=== PATIENT | male | born 1945 | race Two or more races ===

== ENCOUNTER 2022-01-13 06:10 | Day surgery (SDC) | payer OTHER ==
[~2022-01-13] VITALS: Ht 180.3 cm; Wt 142.9 kg
[~2022-01-13 06:10] MED LIST: CYCL-838 PO; FURO1TAB31 PO; HYDR-4798 PO; MELO-61 PO; OMEGCAP2 OR; SACU1TAB7 PO; TAM04C PO; WARF5TAB71 PO
[2022-01-13] MEDS ORDERED: ESMOLOL HCL (10MG/ML) 10 ML VIAL IV ONE (06:11)
[2022-01-13] MEDS ORDERED: LIDOCAINE W/ EPINEPHRINE 1% 20ML VIAL ONE (07:12)
[2022-01-13] MEDS ORDERED: NEOMYCIN-BACITRACIN-POLYM 15GM TOP OINT TOP ONE (07:12)
[2022-01-13] MEDS ORDERED: ceFAZolin 1GM/50ML 150 ML IV ONE (07:23)
[2022-01-13] MEDS ORDERED: MIDAZOLAM HCL 2MG/2ML 2ml VIAL (1mg/ml) ONE (07:46)
[2022-01-13] MEDS ORDERED: MEPERIDINE HCL (25 MG/ML) 1ML VIAL ONE (07:46)
[2022-01-13] MEDS ORDERED: fentaNYL CITRATE 100 MCG/2 ML VL ONE (07:46)
[2022-01-13] MEDS ORDERED: PROPOFOL 10 MG/ML 20 ML IV ONE (08:43)
[2022-01-13] MEDS ORDERED: DexAMETHasone SOD PHOS 10MG/1ML VIAL INJ ONE (08:43)
[2022-01-13] MEDS ORDERED: LABETALOL HCL 5 MG/ML 4ML SYRINGE IV PRN (09:15)
[2022-01-13] MEDS ORDERED: ePHEDrine SULFATE 50 MG/ML AMP IV PRN (09:15)
[2022-01-13] MEDS ORDERED: MORPHINE SULFATE 4 MG/ML SYR/VIAL IV PRN (09:15)
[2022-01-13] MEDS ORDERED: ONDANSETRON HCL 4 MG/2 ML VIAL IV PRN (09:15)
[2022-01-13] MEDS ORDERED: MIDAZOLAM HCL 2MG/2ML 2ml VIAL (1mg/ml) IV PRN (09:15)
[2022-01-13] MEDS ORDERED: HYDROmorphone HCL 2 MG/ML VL/or syr IV PRN (09:15)
[2022-01-13 09:21] VITALS: BP 120/79
== END 2022-01-13 09:38 | disposition home or self-care (01) ==
LOC: SUR 06:10
PROVIDERS: ATTEND Urology
DX: N43.3 Hydrocele, unspecified (principal); I11.0 Hypertensive heart disease with heart failure; I50.9 Heart failure, unspecified; I73.9 Peripheral vascular disease, unspecified; I48.91 Unspecified atrial fibrillation; Z20.822 Contact with and (suspected) exposure to COVID-19
CPT/HCPCS: 55000; J0690; J1100; J2175; J2250; J2704; J3010; U0003

== ENCOUNTER → 2022-07-29 | Outpatient (CLI) | payer OTHER ==
[~2022-07-29] VITALS: Ht 180.3 cm; Wt 136.1 kg
[~2022-07-29] MED LIST changes: +CARV3.1240 PO
== END | disposition home or self-care (01) ==
LOC: SUR 12:39 → EDSTATUS 07-31 11:15
PROVIDERS: ATTEND Urology
DX: N43.3 Hydrocele, unspecified (principal); Z53.8 Procedure and treatment not carried out for other reasons; I11.0 Hypertensive heart disease with heart failure; I50.9 Heart failure, unspecified; I73.9 Peripheral vascular disease, unspecified; Z79.899 Other long term (current) drug therapy; Z79.01 Long term (current) use of anticoagulants; I87.8 Other specified disorders of veins; F10.10 Alcohol abuse, uncomplicated; Z20.822 Contact with and (suspected) exposure to COVID-19; I48.19 Other persistent atrial fibrillation

== ENCOUNTER 2022-08-18 07:48 | Observation (INO) | payer OTHER ==
[~2022-08-18] VITALS: Ht 180.3 cm; Wt 136.0 kg
[~2022-08-18 07:48] MED LIST changes: -CYCL-838 PO; -FURO1TAB31 PO
[2022-08-18] MEDS ORDERED: ceFAZolin 1GM/50ML 100 ML IV ONE (08:35)
[2022-08-18] MEDS ORDERED: LIDOCAINE 1%HCL (LOCAL ANESTH) 10 ML MDV ONE (09:42)
[2022-08-18] MEDS ORDERED: LIDOCAINE 1%-Mpf/Epinephrine 1:200,000 ONE (09:43)
[2022-08-18] MEDS ORDERED: NEOMYCIN-BACITRACIN-POLYM 15GM TOP OINT TOP ONE (09:44)
[2022-08-18] MEDS ORDERED: MIDAZOLAM HCL 2MG/2ML 2ml VIAL (1mg/ml) ONE (09:48)
[2022-08-18] MEDS ORDERED: fentaNYL CITRATE 100 MCG/2 ML VL ONE (09:48)
[2022-08-18] MEDS ORDERED: PROPOFOL 10 MG/ML 20 ML IV ONE (10:10)
[2022-08-18] MEDS ORDERED: ROCURONIUM 10MG/ML 10ML VIAL IV ONE (10:11)
[2022-08-18] MEDS ORDERED: ONDANSETRON HCL 4 MG/2 ML VIAL IV PRN (10:45)
[2022-08-18] MEDS ORDERED: HYDROmorphone HCL 2 MG/ML VL/or syr IV PRN ×2 (10:45)
[2022-08-18] MEDS ORDERED: ONDANSETRON HCL 4 MG/2 ML VIAL ONE (11:29)
[2022-08-18] MEDS ORDERED: LIDOCAINE 2% (LOCAL ANESTH.) PF 5ml SDV ONE (11:29)
[2022-08-18] MEDS ORDERED: MORPHINE SULFATE INJ 2 MG/ml SYRG IV PRN (12:00)
[2022-08-18] MEDS ORDERED: NITROGLYCERIN 0.4 MG SL TAB SL PRN (12:00)
[2022-08-18 16:30] VITALS: BP 151/85
[2022-08-18 16:35] VITALS: BP 151/85
[2022-08-18 16:50] VITALS: BP 151/85
[2022-08-18] MEDS: HYDROcodone-ACET 10/325MG TAB PO PRN ×2 (16:53→22:53)
[2022-08-18 20:00] VITALS: BP 126/73
[2022-08-18] MEDS: DOCUSATE SOD 100 MG CAP PO SCH (21:11)
[2022-08-18 21:38] VITALS: BP 126/73
[2022-08-19] MEDS: HYDROcodone-ACET 10/325MG TAB PO PRN ×2 (04:23→08:58)
[2022-08-19 05:33] VITALS: BP 120/60
[2022-08-19] MEDS: DOCUSATE SOD 100 MG CAP PO SCH (08:57)
[2022-08-19 09:00] VITALS: BP 132/90
== END 2022-08-19 13:13 | disposition home or self-care (01) ==
LOC: SUR 07:48 → OVERFLOW 11:58 → WEST WING 15:48
PROVIDERS: ADMIT Urology; ATTEND Urology
DX: N43.3 Hydrocele, unspecified (principal); Z20.822 Contact with and (suspected) exposure to COVID-19; I11.0 Hypertensive heart disease with heart failure; I50.9 Heart failure, unspecified; I48.91 Unspecified atrial fibrillation; I73.9 Peripheral vascular disease, unspecified; M17.0 Bilateral primary osteoarthritis of knee; Z79.899 Other long term (current) drug therapy
CPT/HCPCS: 55041; 88305; 93005; G0378; J0690; J2001; J2250; J2405; J2704; J3010; U0003